=== PATIENT | female | born 1970 | race Caucasian/White ===

== ENCOUNTER 2023-11-24 08:28 | Emergency (ER) | payer OTHER, SELFPAY ==
[2023-11-24 08:44] VITALS: BP 114/58
--- NOTE | 2023-11-24 09:41 | ED.GENMED ---
History of Present Illness
General
Chief Complaint: Abdominal Symptoms
Time Seen by Provider: 11/24/23 09:26
History of Present Illness
History of Present Illness:
52 male with history of hypothyroidism presents to the emergency department for evaluation of acute onset of nausea, vomiting, and diarrhea beginning earlier this morning. She notes that she has had several episodes of department blood per rectum
this morning as well. She reports generalized abdominal cramping that worsens before bowel movement. Also reports she started her menstrual cycle yesterday. Denies any fevers or chills. No ill contacts at home. Prior abdominal surgery includes
and dermoid cyst removal
Review of Systems
Review of Systems
Allergies reviewed?: Yes
All Other Systems: ROS reviewed and negative except as documented in HPI and ROS
Phy Exam
Physical Exam
Physical Exam:
GEN: Well appearing, NAD, WDWN
HEENT: Oral mucosa moist, no scleral icterus
Cardiac: Regular rate and rhythm, no murmurs
Lung: No respiratory distress, no tachypnea
Abdomen: Soft, grossly nontender
MSK: No gross deformity or injuries
Skin: Good color, no pallor or jaundice, no rashes
Neuro: AO x3, moves all extremities freely
Psych: Calm, cooperative
Course
Orders/Labs/Results
Orders:
Orders
11/24/23 09:34
0.9% Sodium Chloride 1000 ml [Nss] 1,000 ml IV BOLUS
11/24/23 09:36
Complete Blood Count/No Diff Urgent
Comprehensive Metabolic Panel Urgent
Abnormal Lab Results
11/24/23
09:36
MCV 80.5 L fL
(81.0-99.0)
MPV 10.8 H fL
(7.4-10.4)
Glucose 105 H mg/dl
(70-99)
11/24/23 09:36
11/24/23 09:36
Vital Signs
Initial and Last Documented VS:
Initial Vital Signs
Temp Pulse Resp BP Pulse Ox
98.0 F 90 16 114/58 98
11/24/23 08:44 11/24/23 08:44 11/24/23 08:44 11/24/23 08:44 11/24/23 08:44
Last Documented Vital Signs
Temp Pulse Resp BP Pulse Ox
98.0 F 88 16 128/87 99
11/24/23 08:44 11/24/23 10:06 11/24/23 10:06 11/24/23 10:06 11/24/23 10:06
MDM/Problems Addressed
MDM/Problems Addressed:
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 Do not suspect high-volume rectal hemorrhage, nevertheless the patient declines a rectal exam at this time and had no further
episodes of bloody stools in the ED. Discussed supportive care and return parameters. Do not see any indication for CT imaging as she is nontender
*Critical Care Note
Total Time (30-74mins, 75-104mins- exclusive of procedures): Not Applicable
ED Attending Note
-
Portions of this chart may have been created with voice recognition software.� Occasional wrong word or��sound alike� substitutions may have occurred due to the inherent limitations of voice recognition software.
Discharge Plan
Departure
Patient Disposition: Home (Routine Discharge)
Date of Disposition: 11/24/23
Time of Disposition: 10:45
Patient with high blood pressure during this ER visit?: No
Discharge Problem:
Nausea vomiting and diarrhea, Rectal bleed
Instructions: Diarrhea in teens and adults
Prescriptions:
New
ondansetron 4 mg tablet,disintegrating
4 mg PO TIDPRN PRN (Reason: nausea/vomiting) Qty: 10 0RF
Referrals:
Jama Chirinos, [Family Provider] -
Activity Restrictions/Additional Instructions:
Rectal bleeding should resolve in 2-3 days.
Increase hydration at home
Return if symptoms persist >5-7 days or you develop inability to eat/drink
Interventions
Interventions:
*Risk Screen - Suicide Last Done: 11/24/23 08:50
*General Assessment Last Done: 11/24/23 09:14
*Neglect/Abuse Screening Last Done: 11/24/23 08:50
ED- Fall Risk Assessment Last Done: 11/24/23 08:49
*ED COVID-19 Vaccine History Last Done: 11/24/23 08:50
*Nursing Disposition Last Done: 11/24/23 10:53
FR-Opvche-Vkjecckujy Assessment Last Done: 11/24/23 08:50
Discharge Date and Time
Discharge Date/Time: 11/24/23 10:55
Print Language: ROMANSH
[2023-11-24] MEDS: NSS 1000 IV (09:44)
[2023-11-24 09:50] LABS: Hematocrit 38.9 % (37.0-47.0); Hemoglobin 13.8 g/dL (12.0-16.0); Mean Corp Hgb Conc. 35.5 g/dL (33.0-37.0); Mean Corpuscular Hgb 28.6 pg (27.0-31.0); Mean Corpuscular Volume 80.5 fL (81.0-99.0); Mean Platelet Volume 10.8 fL (7.4-10.4); Platelet Count 251 10^3/uL (130-400); Red Blood Cell Count 4.83 10^6/uL (4.20-5.40); Red Cell Dist. Width 12.9 % (11.5-14.5); White Blood Cell Count 7.4 10^3/uL (4.8-10.8)
[2023-11-24 09:57] LABS: ALT (SGPT) 14 U/L (0-35); AST (SGOT) 17 U/L (14-36); Albumin 4.3 g/dl (3.5-5.0); Alkaline Phosphatase 57 U/L (38-126); Blood Urea Nitrogen 10 mg/dl (7-17); Calcium 9.6 mg/dl (8.4-10.2); Carbon Dioxide 27 mmol/L (22-30); Chloride 106 mmol/L (98-107); Glucose 105 mg/dl (70-99); Sodium 137 mmol/L (135-145); Total Bilirubin 0.7 mg/dl (0.2-1.3); Total Protein 6.6 g/dl (6.3-8.2); eGFR > 60.00
[2023-11-24 10:06] VITALS: BP 128/87
== END 2023-11-24 10:55 | disposition home or self-care (01) ==
LOC: EMR 08:28
PROVIDERS: Physician Assistant; EMERGENCY PHYSICIAN Emergency Medicine; FAMILY PHYSICIAN Family Medicine
DX: R11.2 Nausea with vomiting, unspecified (principal); R19.7 Diarrhea, unspecified; K62.5 Hemorrhage of anus and rectum
CPT/HCPCS: 99283; 96360; 80053; 85027